=== PATIENT | male | born 2000 | race Hispanic/Latino ===

== ENCOUNTER 2024-04-26 15:45 | Emergency (ER) | payer BC ==
[~2024-04-26] VITALS: Ht 175.3 cm; Wt 63.6 kg
[~2024-04-26 15:45] MED LIST: ANALPRAM HC 2.530 GM PR; CETIRIZINE HCL10 M1 PO
[2024-04-26] MEDS: ONDANSETRON HCL INJ 2MG/ML 2ML 2 MG/ML VIAL IV STA (16:39)
[2024-04-26] MEDS: SODIUM CHLORIDE 0.9% 1000ML 1,000 ML IV ONE (16:39)
[2024-04-26 18:34] VITALS: PULSE 95; RESP 16; TEMP 100.2
[2024-04-26] MEDS ORDERED: ONDANSETRON ODT4 MG PO (20:26)
[2024-04-26 20:46] VITALS: BP 112/69; PULSE 97; RESP 16; TEMP 97.7; O2SAT 97
== END 2024-04-26 20:40 | disposition home or self-care (01) ==
LOC: FSED 16:05
DX: R50.9 Fever, unspecified (principal); K52.9 Noninfective gastroenteritis and colitis, unspecified; R11.2 Nausea with vomiting, unspecified; L30.9 Dermatitis, unspecified
CPT/HCPCS: 74176; 80048; 80076; 81003; 85025; 96374; 99284; J2405; J7030; 96360